=== PATIENT | female | born 1950 | race Caucasian/White ===

== ENCOUNTER 2017-02-20 19:43 | Emergency (ER) | payer MEDICARE, OTHER ==
[2017-02-20] MEDS ORDERED: ONDANSETRON HCL 4 MG/2 ML VIAL ONE (20:16)
[2017-02-20] MEDS ORDERED: KETOROLAC TROMETHAMINE 30 MG/ML VIAL ONE (20:16)
[2017-02-20] MEDS ORDERED: NORMAL SALINE 1,000 ML IV ONE (20:16)
[2017-02-20 20:28] LABS: BASOPHIL# 0.1 X 10^3uL (0.0-0.1); BASOPHILS 0.8 % (0.0-2.0); EOSINOPHILS 7.4 % (0.0-6.0); EOSINOPHILS# 0.6 X 10^3uL (0.0-0.4); HEMATOCRIT 39.9 % (36.0-48.0); HEMOGLOBIN 13.2 g/dL (12.0-16.0); LYMPHOCYTES 42.6 % (20.0-40.0); LYMPHOCYTES# 3.1 X 10^3uL (0.8-3.8); MEAN CELL VOLUME 88.5 fL (80.0-100.0); MEAN CORPUS. HGB CONCENTRATION 33.1 g/dL (32.0-36.0); MEAN CORPUSCULAR HEMOGLOBIN 29.3 pg (29.0-35.0); MEAN PLATELET VOLUME 10.1 fL (7.4-10.4); MONOCYTES 10.5 % (2.0-10.0); MONOCYTES# 0.8 X 10^3uL (0.2-1.0); NEUTROPHILS 38.7 % (54.0-75.0); NEUTROPHILS# 2.9 X 10^3uL (2.6-6.7); RED BLOOD COUNT 4.51 X 10^6uL (4.20-6.10); RED CELL DISTRIBUTION WIDTH 13.1 % (11.5-14.5); WHITE BLOOD COUNT 7.5 X 10^3uL (3.9-10.7)
[2017-02-20 20:30] LABS: A/G RATIO 1.4; ALBUMIN 4.4 g/dL (3.5-5.0); BILIRUBIN, TOTAL 0.5 mg/dL (0.2-1.3); CALCIUM 9.9 mg/dL (8.4-10.2); TOTAL PROTEIN 7.6 g/dL (6.3-8.2)
--- NOTE | 2017-02-20 21:13 | CT REPORT ---
HISTORY: Fall with loss of consciousness COMPARISON: None. TECHNIQUE: This examination was performed using automated exposure control, adjustment of mA or kV according to patient size, and/or use of iterative reconstruction technique. Axial thin section images obtained f rom skull base through head of the clavicles. Sagittal and coronal reformat images obtained. FINDINGS: There is no fracture. There is no prevertebral soft tissue swelling. Alignment is normal. There is no lytic or sclerotic lesion. Mineralization is normal. There is no gross soft tissue abnormality. Facet arthropathy greatest at C4-5 and C5-6 without significant bony foraminal narrowing or bony ce ntral stenosis. IMPRESSION: No evidence of acute bony injury, cervical spine. Final Electronic Signature: This report was electronically signed by Gen Ted MD on 02/20/2017 9: 11 PM. laurel /
--- NOTE | 2017-02-20 21:15 | CT REPORT ---
HISTORY: COMPARISON: None. TECHNIQUE: Axial imaging was obtained through the brain. This examination was performed using automated exposure control, adjustment of mA or kV according to patient size, and/or use of iterative reconstruction technique. FINDINGS: The ventricles and sulci are normal in size and configuration for the patient's age. No evidence of abnormal intra- or extraaxial fluid collection/bleed or mass lesion identified. No evidence of acute stroke. The paranasal sinuses and orbits appear within normal limits. Bilateral mandibular ORIF hardware. IMPRESSION: No evidence of acute intracranial injury. Final Electronic Signature: This report was electronically signed by Gen Ted MD on 02/20/2017 9: 12 PM. laurel /
[2017-02-20] MEDS ORDERED: NYSTATIN POWDER 1 APPLIC BTL TOPICAL ONE (21:17)
--- NOTE | 2017-02-20 21:40 | ER NURSING DOCUMENTATION ---
Nurse's Notes Name:Elaine Craft Age:66 yrs Sex:Female :1950 Arrival Date:02/20/2017 Time:19:43 Bed1 Private MD:Physician, No Diagnosis:Headache, Tension Presentation: 02/20 19:47 Presenting complaint: Patient states: Ground level fall. Transition of care: Home. lp 19:47 Method Of Arrival: EMS: 400 lp 19:47 Acuity: ALMA 3 lp Triage Assessment: 19:57 General: Appears in no apparent distress. lp 19:57 General: Behavior is appropriate for age. Pain: Complains of pain in anterior aspect of lp right shoulder and posterior aspect of right shoulder Pain currently is 5 out of 10 on a pain scale. EENT: No deficits noted. 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 Moves all extremities. Gait is steady, Speech is normal, Facial symmetry appears normal. Cardiovascular: No deficits noted. Respiratory: No deficits noted. GI: No deficits noted. : No deficits noted. Derm: No deficits noted. Musculoskeletal: No deficits noted. Historical: - Allergies: SULFA (SULFONAMIDES); Imitrex; Latex; - Home Meds: 1. Rytary 1 tab 10x daily for Parkinsons 2. Metanx (algal oil) 3 mg-35 mg-2 mg -90.314 mg oral cap 2 caps daily 3. Cymbalta 30 mg oral cpDR 1 cap 2 times per day 4. Lasix 20 mg oral tab 1 tab once daily 5. cevimeline 30 mg oral cap 1 cap 3 times per day 6. Protonix 40 mg oral TbEC 1 tab once daily 7. trazodone 100 mg oral tab 1 tab 3 times per day after meals 8. Seroquel 100 mg oral tab 1 tab 9. Sharon 10-325 mg oral tab 1 tab every 6 hours as needed for pain 10. Hysingla 1 tab as needed twice a day 11. pregabalin 150 mg oral cap 1 cap 3 x daily 12. Topamax 50 mg oral tab 1 tab 2 times per day 13. clotrimazole 1 % topical crea Unknown 3 x daily - PMHx: Migraines; PARKINSONS; DEPRESSION; Hypertension; CHRONIC PAIN; Chronic Yeast Infection; - PSHx: Appendectomy; HERNIA REPAIR; [place] teeth; TMJ Surgery; D & C; ECTOPIC ; - Tetanus: < 10 years. - Ebola Screening: : Patient negative for fever greater than or equal to 101.5 degrees Fahrenheit, and additional compatible Ebola Virus Disease symptoms. Patient denies exposure to infectious person. Patient denies travel to an Ebola-affected area in the 21 days before illness onset. . - Immunization history: Pneumococcal vaccine is up to date, Flu Vaccine < 1 year. - Social history: Smoking status: Patient states was never smoker of tobacco. Screenin:59 Infectious Disease Risk None. Nutritional screening: No deficits noted. lp 19:59 Abuse screen: Denies threats or abuse. Denies injuries from another. lp Assessment: 19:59 See Triage Assessment done by same RN. lp Vital Signs: 19:41 BP 101 / 51 (auto/); lp 19:42 Pulse Ox 90% ; lp 19:47 BP 101 / 51; Pulse 77; Resp 14; Temp 97.5(TE); Pulse Ox 83% on R/A; Weight 83.91 kg; lp Height 5 ft. 10 in. (177.80 cm); Pain 5/10; 20:00 BP 103 / 57 (auto/); lp 20:02 Pulse Ox 94% ; lp 21:00 BP 124 / 63 (auto/); lp 21:11 BP 115 / 58 (auto/); lp 21:27 Pulse Ox 98% ; lp 21:31 BP 126 / 68 (auto/); lp 19:47 Body Mass Index 26.54 (83.91 kg, 177.80 cm) lp ED Course: 19:44 Patient arrived in ED. em2 19:44 Physician, No is Private Physician. em2 19:46 Maria Fernanda Rodrigues, RN is Primary Nurse. lp 19:47 Triage completed. lp 19:51 EKG done. (by ED staff). em1 19:55 Macario Burger MD is Attending Physician. be 19:[address] Burger. lp 19:59 Valuables Remains with patient Patient has correct armband on for positive lp identification. Placed in gown. Bed in low position. Call light in reach. 20:[address] mr 20:[address]. mr Administered Medications: 20:07 Drug: NS 0.9% 1000 ml; Route: IV; Rate: bolus; Site: left antecubital; lp 21:38 Follow up: Response: No adverse reaction; No change in condition; IV Status: Completed lp infusion; IV Intake: 1000ml 20:07 Drug: Zofran 8 mg; Route: IVP; Infused Over: 2 mins; Site: left antecubital; lp 21:05 Follow up: Response: No adverse reaction; Nausea is decreased lp 20:08 Drug: Toradol 30 mg; Route: IVP; Site: left antecubital; lp 21:05 Follow up: Response: No adverse reaction; Pain is decreased lp 20:45 Drug: nystatin 202848 units; {Note: No feeding tube on skin under breasts and in lp groin.} Route: Feeding Tube; Intake: 21:38 IV: 1000ml; Total: 1000ml. lp Outcome: 21:02 Discharge ordered by . be 21:37 Discharged to home ambulatory. lp 21:37 Condition: stable 21:37 Instructed on discharge instructions, follow up and referral plans. medication usage. 21:39 Patient left the ED. lp 02/21 11:44 Discharge F/U Call: Unable to reach: no answer Signatures: Maria Fernanda Rodrigues RN RN Macario Burger MD MD be JerichoKnomo-tech, Elsa-tech em1 [place]-reg, Elsa-reg em2 Batool Sommers Perez, Godwin mr
--- NOTE | 2017-02-20 21:40 | ER PHYSICIAN DOCUMENTATION ---
Physician Documentation [facility] Name:Elaine Craft Age:66 yrs Sex:Female :1950 Arrival Date:02/20/2017 Time:19:43 Bed1 Private MD:Physician, No ED Macario Ann Disposition: 02/20/17 21:02 Discharged to Home/Self Care. Impression: Headache, Tension. - Condition is Good. - Discharge Instructions: HEADACHE, Tension, Altitude - ALTITUDE SICKNESS. - Prescriptions for nystatin (bulk) - Apply to affected area 1 packet by TOPICAL route 2 times per day; 60 packet. - Medical Reconciliation form form. - Follow up: Private Physician; When: As needed; Reason: Recheck today's complaints, Continuance of care. - Problem is new. - Symptoms have improved. HPI: 02/20 20:06 This 66 yrs old Female presents to ER via EMS with complaints of Fall Injury. be 20:06 Details of fall: The patient fell from an upright position, while walking. Onset: The be symptom(s)/episode began/occurred just prior to arrival, just arrived in [facility] and checked in to [place], with no airconditioning in room. Associated injuries: The patient sustained injury to the head, contusion. Associated signs and symptoms: Pertinent positives: headache, nausea, tingling, weakness. Severity of symptoms: At their worst the symptoms were moderate, just prior to arrival. Historical: - Allergies: SULFA (SULFONAMIDES); Imitrex; Latex; - Home Meds: 1. Rytary 1 tab 10x daily for Parkinsons 2. Metanx (algal oil) 3 mg-35 mg-2 mg -90.314 mg oral cap 2 caps daily 3. Cymbalta 30 mg oral cpDR 1 cap 2 times per day 4. Lasix 20 mg oral tab 1 tab once daily 5. cevimeline 30 mg oral cap 1 cap 3 times per day 6. Protonix 40 mg oral TbEC 1 tab once daily 7. trazodone 100 mg oral tab 1 tab 3 times per day after meals 8. Seroquel 100 mg oral tab 1 tab 9. [place] 10-325 mg oral tab 1 tab every 6 hours as needed for pain 10. Hysingla 1 tab as needed twice a day 11. pregabalin 150 mg oral cap 1 cap 3 x daily 12. Topamax 50 mg oral tab 1 tab 2 times per day 13. clotrimazole 1 % topical crea Unknown 3 x daily - PMHx: Migraines; PARKINSONS; DEPRESSION; Hypertension; CHRONIC PAIN; Chronic Yeast Infection; - PSHx: Appendectomy; HERNIA REPAIR; [place] teeth; TMJ Surgery; D & C; ECTOPIC ; - Tetanus: < 10 years. - Ebola Screening: : Patient negative for fever greater than or equal to 101.5 degrees Fahrenheit, and additional compatible Ebola Virus Disease symptoms. Patient denies exposure to infectious person. Patient denies travel to an Ebola-affected area in the 21 days before illness onset. . - Immunization history: Pneumococcal vaccine is up to date, Flu Vaccine < 1 year. - Social history: Smoking status: Patient states was never smoker of tobacco. ROS: 20:08 MS/extremity: Positive for tenderness, right shoulder, head/neck and bilateral knees. be Exam: 20:10 Constitutional: This is a well developed, well nourished patient who is awake, alert, be and in no acute distress. Head/Face: Normocephalic, atraumatic. Eyes: Pupils equal round and reactive to light, extra-ocular motions intact. Lids and lashes normal. Conjunctiva and sclera are non-icteric and not injected. Cornea within normal limits. Periorbital areas with no swelling, redness, or edema. ENT: Nares patent. No nasal discharge, no septal abnormalities noted. Tympanic membranes are normal and external auditory canals are clear. Oropharynx with no redness, swelling, or masses, exudates, or evidence of obstruction, uvula midline. Mucous membranes moist. Neck: Trachea midline, no thyromegaly or masses palpated, and no cervical lymphadenopathy. Supple, full range of motion without nuchal rigidity, or vertebral point tenderness. No Meningismus. Chest/axilla: Normal chest wall appearance and motion. Nontender with no deformity. No lesions are appreciated. 20:10 Cardiovascular: Regular rate and rhythm with a normal S1 and S2. No gallops, murmurs, be or rubs. Normal PMI, no JVD. No pulse deficits. 20:10 Musculoskeletal/extremity: Extremities: all normal ROM, but c/o pain. 20:10 Neuro: Orientation: is normal, Mentation: is normal. Vital Signs: 19:41 BP 101 / 51 (auto/); lp 19:42 Pulse Ox 90% ; lp 19:47 BP 101 / 51; Pulse 77; Resp 14; Temp 97.5(TE); Pulse Ox 83% on R/A; Weight 83.91 kg; lp Height 5 ft. 10 in. (177.80 cm); Pain 5/10; 20:00 BP 103 / 57 (auto/); lp 20:02 Pulse Ox 94% ; lp 21:00 BP 124 / 63 (auto/); lp 21:11 BP 115 / 58 (auto/); lp 21:27 Pulse Ox 98% ; lp 21:31 BP 126 / 68 (auto/); lp 19:47 Body Mass Index 26.54 (83.91 kg, 177.80 cm) lp MDM: 20:00 Patient medically screened. be 20:05 ECG:. be 20:11 Differential diagnosis: closed head injury, contusion, altitude sickness. be 21:11 Data reviewed: and as a result, I will discharge patient, administer IV fluids, NS be bolus, prescribe pain medication, Toradol. 22:55 ECG:. be 02/20 20:34 Order name: COMPREHENSIVE METABOLIC PANEL; Complete Time: 21:08 EDMS 02/20 21:08 Interpretation: Normal Except: mild renal insufficiency. be 02/20 20:46 Order name: CBC AUTO DIF, MDIF/RMOR IF IND; Complete Time: 21:08 EDMS 02/20 21:08 Interpretation: Normal. be 02/20 21:14 Order name: CAT SCAN; CERVICAL W/[id number]; Complete Time: 22:56 EDMS 02/20 22:56 Interpretation: Normal. be 02/20 21:15 Order name: CAT SCAN; HEAD W/O CON [id number]; Complete Time: 22:56 EDMS 02/22 17:21 Order name: SHOULDER; 2V+ [place] [id number] EDMS 02/22 17:21 Order name: KNEE; [address] [place] [id number] EDMS 02/20 19:59 Order name: EKG - 12 Lead; Complete Time: 20:10 be EC:05 Rate is 74 beats/min. Rhythm is regular, Normal Sinus Rhythm with No ectopy. QRS [place] be is Normal. [place] interval is normal. QRS interval is normal. QT interval is normal. No Q waves. T waves are Normal. No ST changes noted. Clinical impression: Normal ECG. Interpreted by me. 22:55 Rate is 74 beats/min. Rhythm is regular, Normal Sinus Rhythm with No ectopy. QRS [place] be is Normal. [place] interval is normal. QRS interval is normal. QT interval is normal. No Q waves. T waves are Normal. No ST changes noted. Clinical impression: Normal ECG. Interpreted by me. Dispensed Medications: 20:07 Drug: NS 0.9% 1000 ml; Route: IV; Rate: bolus; Site: left antecubital; lp 21:38 Follow up: Response: No adverse reaction; No change in condition; IV Status: Completed lp infusion; IV Intake: 1000ml 20:07 Drug: Zofran 8 mg; Route: IVP; Infused Over: 2 mins; Site: left antecubital; lp 21:05 Follow up: Response: No adverse reaction; Nausea is decreased lp 20:08 Drug: Toradol 30 mg; Route: IVP; Site: left antecubital; lp 21:05 Follow up: Response: No adverse reaction; Pain is decreased lp 20:45 Drug: nystatin 404987 units; {Note: No feeding tube on skin under breasts and in lp groin.} Route: Feeding Tube; Signatures: Maria Fernanda Rodrigues RN RN Macario Burger MD MD be
--- NOTE | 2017-02-22 11:13 | RADIOLOGY REPORT ---
Two views of the right shoulder demonstrates a nondisplaced oblique fracture of the lateral aspect of the clavicle. No other bony abnormality is identified. Joints appear unremarkable. IMPRESSION: Nondisplaced fracture of the lateral aspect of the right clavicle. MTDD
--- NOTE | 2017-02-22 11:14 | RADIOLOGY REPORT ---
Three views of each knee demonstrate no displaced fracture or dislocation. Joints appear unremarkable. IMPRESSION: No displaced injury. If clinically indicated, further evaluation and/or follow-up may be of benefit. [facility]
== END 2017-02-20 21:40 | disposition home or self-care (01) ==
LOC: ER 19:43
DX: S42.034A Nondisplaced fracture of lateral end of right clavicle, initial encounter for closed fracture (principal); S00.03XA Contusion of scalp, initial encounter; M25.561 Pain in right knee; M25.562 Pain in left knee; W19.XXXA Unspecified fall, initial encounter; Y93.01 Activity, walking, marching and hiking; G44.201 Tension-type headache, unspecified, intractable; G20 Parkinson's disease; Z79.899 Other long term (current) drug therapy; Z74.3 Need for continuous supervision
CPT/HCPCS: 70450; 72125; 73030; 73562; 80053; 85025; 93005; 96361; 96374; 96375; 99284; A0425; A0426; J1885; J2405; J7030

== ENCOUNTER 2017-02-22 10:00 | Observation (INO) | payer MEDICARE, OTHER ==
[2017-02-22 10:33] LABS: BASOPHILS 0.5 % (0.0-2.0); EOSINOPHILS 6.6 % (0.0-6.0); EOSINOPHILS# 0.4 X 10^3uL (0.0-0.4); HEMATOCRIT 36.8 % (36.0-48.0); LYMPHOCYTES# 2.3 X 10^3uL (0.8-3.8); MEAN CORPUS. HGB CONCENTRATION 32.6 g/dL (32.0-36.0); MEAN CORPUSCULAR HEMOGLOBIN 29.4 pg (29.0-35.0); MEAN PLATELET VOLUME 8.5 fL (7.4-10.4); MONOCYTES 11.9 % (2.0-10.0); MONOCYTES# 0.7 X 10^3uL (0.2-1.0); NEUTROPHILS# 2.7 X 10^3uL (2.6-6.7); RED BLOOD COUNT 4.09 X 10^6uL (4.20-6.10); RED CELL DISTRIBUTION WIDTH 13.4 % (11.5-14.5); WHITE BLOOD COUNT 6.1 X 10^3uL (3.9-10.7)
[2017-02-22 10:48] LABS: CALCIUM 9.1 mg/dL (8.4-10.2); POTASSIUM 3.9 mmol/L (3.5-5.1)
[2017-02-22 11:02] LABS: TROPONIN I 0.037 ng/mL (0.00-0.034)
[2017-02-22] MEDS ORDERED: HOME MEDICATION LIST NEEDED 1 EA EACH MC ONE (11:49)
[2017-02-22] MEDS ORDERED: NYSTATIN SUSP 500,000 UNITS/5 ML SUSP ONE (11:53)
[2017-02-22] MEDS ORDERED: FUROSEMIDE 20 MG/2 ML VIAL ONE (11:56)
--- NOTE | 2017-02-22 12:52 | ER PHYSICIAN DOCUMENTATION ---
Physician Documentation [facility] Name:Elaine Craft Age:66 yrs Sex:Female :1950 Arrival Date:02/22/2017 Time:10:00 BedTrauma-C Private MD: Aquiles Vail Disposition: 02/22 11:46 Critical Care: not applicable. sc Disposition: 02/22/17 11:48 Admit ordered for Orquidea Calderon. Preliminary diagnosis are CHF (Congestive Heart Failure), Hypoxia, Clavicle Fracture. - Bed requested for Medical/Surgical. - Condition is Fair. - Problem is new. - Symptoms are unchanged. 23 HR OBS Yes HPI: 11:43 This 66 yrs old Female presents to ER via Private Vehicle with complaints of sc Breathing Difficulty. 11:43 The patient has shortness of breath at rest. Onset: The symptom(s)/episode sc began/occurred 2 day(s) ago. Duration: The symptoms are continuous. The patient's shortness of breath is aggravated by altitude. Associated signs and symptoms: Pertinent negatives: chest pain, non-productive cough, fever. Severity of symptoms: At their worst the symptoms were mild. fall two days ago, increased hand and ankle swelling. Historical: - Allergies: SULFA (SULFONAMIDES); Imitrex; Latex; - Home Meds: 1. Rytary 1 tab 10x daily for Parkinsons 2. Metanx (algal oil) 3 mg-35 mg-2 mg -90.314 mg oral cap 2 caps daily 3. Cymbalta 30 mg oral cpDR 1 cap 2 times per day 4. Lasix 20 mg oral tab 1 tab once daily 5. cevimeline 30 mg oral cap 1 cap 3 times per day 6. Protonix 40 mg oral TbEC 1 tab once daily 7. trazodone 100 mg oral tab 1 tab 3 times per day after meals 8. Seroquel 100 mg oral tab 1 tab 9. [place] 10-325 mg oral tab 1 tab every 6 hours as needed for pain 10. pregabalin 150 mg oral cap 1 cap 3 x daily 11. Topamax 50 mg oral tab 1 tab 2 times per day 12. clotrimazole 1 % topical crea Unknown 3 x daily - PMHx: MIGRAINES; PARKINSONS; DEPRESSION; HYPERTENSION; CHRONIC PAIN; Chronic Yeast Infection; Headache, Tension (February 20, 2017); - PSHx: APPENDECTOMY; HERNIA REPAIR; [place] teeth; TMJ Surgery; D & C; ECTOPIC ; - Tetanus: < 10 years. - Ebola Screening: : Patient negative for fever greater than or equal to 101.5 degrees Fahrenheit, and additional compatible Ebola Virus Disease symptoms. Patient denies exposure to infectious person. Patient denies travel to an Ebola-affected area in the 21 days before illness onset. . - Immunization history: Pneumococcal vaccine is up to date, Flu Vaccine < 1 year. - Social history: Smoking status: Patient states was never smoker of tobacco. ROS: 11:44 Constitutional: Negative for fever, chills, and weight loss. sc Eyes: Negative for injury, pain, redness, and discharge. ENT: Negative for injury, pain, and discharge. Neck: Negative for injury, pain, and swelling. Abdomen/GI: Negative for abdominal pain, nausea, vomiting, diarrhea, and constipation. Back: Negative for injury and pain. MS/Extremity: Negative for injury and deformity. Skin: Negative for injury, rash, and discoloration. 11:44 Neuro: Negative for headache, weakness, numbness, tingling, and seizure. sc 11:44 Cardiovascular: Positive for edema. 11:44 Respiratory: Positive for shortness of breath, Negative for cough, hemoptysis, wheezing. Exam: Head/Face: Normocephalic, atraumatic. Eyes: Pupils equal round and reactive to light, extra-ocular motions intact. Lids and lashes normal. Conjunctiva and sclera are non-icteric and not injected. Cornea within normal limits. Periorbital areas with no swelling, redness, or edema. ENT: Nares patent. No nasal discharge, no septal abnormalities noted. Tympanic membranes are normal and external auditory canals are clear. Oropharynx with no redness, swelling, or masses, exudates, or evidence of obstruction, uvula midline. Mucous membranes moist. Neck: Trachea midline, no thyromegaly or masses palpated, and no cervical lymphadenopathy. Supple, full range of motion without nuchal rigidity, or vertebral point tenderness. No meningismus. Chest/axilla: Normal chest wall appearance and motion. Nontender with no deformity. No lesions are appreciated. Cardiovascular: Regular rate and rhythm with a normal S1 and S2. No gallops, murmurs, or rubs. Normal PMI, no JVD. No pulse deficits. Back: No spinal tenderness. No costovertebral tenderness. Full range of motion. 11:45 Neuro: Awake and alert, GCS 15, oriented to person, place, time, and situation. sc Cranial nerves II-XII grossly intact. Motor strength 5/5 in all extremities. Sensory grossly intact. Cerebellar exam normal. Normal gait. 11:45 Constitutional: The patient appears frail. 11:45 Respiratory: mild respiratory distress is noted, Respirations: shallow respirations, Breath sounds: are normal, clear throughout. Vital Signs: 10:17 BP 99 / 55; Pulse 71; Resp 20; Temp 98.4(TE); Pulse Ox 85% on R/A; Weight 81.65 kg; lp Height 5 ft. 2 in. (157.48 cm); Pain 5/10; 11:00 BP 102 / 63 (auto/); lp 11:01 Pulse 66 MON; Resp 16; Pulse Ox 95% ; lp 11:30 BP 101 / 51 (auto/); lp 11:31 Pulse 64 MON; Resp 20; Pulse Ox 95% ; lp 12:00 BP 103 / 58; Pulse 64; Resp 18; lp 12:42 BP 106 / 52; Pulse 73; Resp 16; Pulse Ox 95% on 2 lpm NC; lp 10:17 Body Mass Index 32.92 (81.65 kg, 157.48 cm) lp MDM: 10:12 Patient medically screened. sc 10:32 ECG:. sc 11:08 EKG attached lp 11:45 Differential diagnosis: Anemia CHF exacerbation, Myocardial Infarction pulmonary edema, sc Pulmonary Embolism. Antibiotic administration: Not indicated. Data reviewed: vital signs, nurses notes, old medical records, lab test result(s), EKG, radiologic studies, discussed CT for PE with pt and Dr. Calderon. Data reviewed: and as a result, I will admit patient. Data interpreted: Pulse oximetry: on room air is 84 %. 02/22 11:03 Order name: BASIC METABOLIC PANEL; Complete Time: : EDMS 02/22 11:03 Order name: BNP,NT-PRO; Complete Time: : EDMS 02/22 11:03 Order name: TROPONIN I; Complete Time: : EDMS 02/22 11:04 Order name: DDIMER; Complete Time: : [facility] 02/22 11:16 Order name: CBC AUTO DIF, MDIF/RMOR IF IND; Complete Time: 11:29 [facility] 02/23 07:13 Order name: BASIC METABOLIC PANEL [facility] 02/23 07:13 Order name: BNP,NT-PRO EDMO 02/23 07:16 Order name: CHEST; SINGLE [place]IEW [id number] [facility] 02/22 10:24 Order name: 12-lead EKG; Complete Time: 10:49 md 02/22 10:24 Order name: Continuous Cardiac Monitoring; Complete Time: 10:49 md 02/22 10:24 Order name: I & O; Complete Time: 10:49 md 02/22 10:24 Order name: Iv Saline Lock; Complete Time: :49 md 02/22 10:24 Order name: Oxygen; Complete Time: : md 02/22 10:24 Order name: Pulse Ox Continuous; Complete Time: 10:49 md EC:32 Rate is 67 beats/min. Rhythm is regular. QRS [place] is Normal. [place] interval is normal. QRS sc interval is normal. QT interval is normal. No Q waves. T waves are Normal. No ST changes noted. Clinical impression: Normal ECG. Interpreted by me. Reviewed by me. Dispensed Medications: 11:47 Drug: Lasix 20 mg; Route: IVP; Site: right antecubital; lp 12:17 Follow up: Response: No adverse reaction lp 11:47 Drug: nystatin [id number] units; Route: PO; lp 12:17 Follow up: Response: No adverse reaction lp Signatures: Maria Fernanda Rodrigues RN RN Aquiles Ferguson MD MD md
--- NOTE | 2017-02-22 12:52 | ER NURSING DOCUMENTATION ---
Nurse's Notes [facility] Name:Elaine Craft Age:66 yrs Sex:Female :1950 Arrival Date:02/22/2017 Time:10:00 BedTrauma-C Private MD: Diagnosis:CHF (Congestive Heart Failure);Hypoxia;Clavicle Fracture Presentation: 02/22 10:02 Acuity: ALMA 2 rh 10:15 Presenting complaint: Patient states: SOB. Transition of care: Home. Notified ED lp Physician of Dr. Bob notified. 10:15 Method Of Arrival: Private Vehicle lp Triage Assessment: 10:23 General: Appears in no apparent distress, Behavior is anxious. Respiratory: Reports lp shortness of breath at rest on exertion Onset: The symptoms/episode began/occurred yesterday, the patient has mild shortness of breath. Historical: - Allergies: SULFA (SULFONAMIDES); Imitrex; Latex; - Home Meds: 1. Rytary 1 tab 10x daily for Parkinsons 2. Metanx (algal oil) 3 mg-35 mg-2 mg -90.314 mg oral cap 2 caps daily 3. Cymbalta 30 mg oral cpDR 1 cap 2 times per day 4. Lasix 20 mg oral tab 1 tab once daily 5. cevimeline 30 mg oral cap 1 cap 3 times per day 6. Protonix 40 mg oral TbEC 1 tab once daily 7. trazodone 100 mg oral tab 1 tab 3 times per day after meals 8. Seroquel 100 mg oral tab 1 tab 9. [place] 10-325 mg oral tab 1 tab every 6 hours as needed for pain 10. pregabalin 150 mg oral cap 1 cap 3 x daily 11. Topamax 50 mg oral tab 1 tab 2 times per day 12. clotrimazole 1 % topical crea Unknown 3 x daily - PMHx: MIGRAINES; PARKINSONS; DEPRESSION; HYPERTENSION; CHRONIC PAIN; Chronic Yeast Infection; Headache, Tension (February 20, 2017); - PSHx: APPENDECTOMY; HERNIA REPAIR; [place] teeth; TMJ Surgery; D & C; ECTOPIC ; - Tetanus: < 10 years. - Ebola Screening: : Patient negative for fever greater than or equal to 101.5 degrees Fahrenheit, and additional compatible Ebola Virus Disease symptoms. Patient denies exposure to infectious person. Patient denies travel to an Ebola-affected area in the 21 days before illness onset. . - Immunization history: Pneumococcal vaccine is up to date, Flu Vaccine < 1 year. - Social history: Smoking status: Patient states was never smoker of tobacco. Screenin:18 Infectious Disease Risk None. Abuse screen: Denies threats or abuse. Denies injuries lp from another. Nutritional screening: No deficits noted. Assessment: 10:21 General: Appears in no apparent distress, Behavior is anxious. Pain: Complains of pain lp in top of head, forehead, right zoroastrian and left zoroastrian Pain currently is 5 out of 10 on a pain scale. Neuro: Level of Consciousness is awake, alert, Oriented to person, place, time, event, Buttonhole Marker are equal bilaterally Moves all extremities. EENT: No deficits noted. Cardiovascular: Heart tones S1 S2 Murmur present Rhythm is sinus rhythm. Respiratory: Airway is patent Trachea midline Respiratory effort is even, unlabored, Breath sounds with wheezes bilaterally. GI: No deficits noted. Bowel sounds present X 4 quads. : No deficits noted. Vital Signs: 10:17 BP 99 / 55; Pulse 71; Resp 20; Temp 98.4(TE); Pulse Ox 85% on R/A; Weight 81.65 kg; lp Height 5 ft. 2 in. (157.48 cm); Pain 5/10; 11:00 BP 102 / 63 (auto/); lp 11:01 Pulse 66 MON; Resp 16; Pulse Ox 95% ; lp 11:30 BP 101 / 51 (auto/); lp 11:31 Pulse 64 MON; Resp 20; Pulse Ox 95% ; lp 12:00 BP 103 / 58; Pulse 64; Resp 18; lp 12:42 BP 106 / 52; Pulse 73; Resp 16; Pulse Ox 95% on 2 lpm NC; lp 10:17 Body Mass Index 32.92 (81.65 kg, 157.48 cm) lp ED Course: 10:01 Patient arrived in ED. ama 10:02 Triage completed. rh 10:12 Aquiles Bob MD is Attending Physician. sc 10:15 Maria Fernanda Rodrigues, CARLOS is Primary Nurse. lp 10:18 Valuables Patient has correct armband on for positive identification. Placed in gown. lp Bed in low position. Call light in reach. Side rails up X 1. 10:45 Port Xray Completed. hz 10:49 Cardiac Monitoring On for Nurse Monitoring only. Pulse Ox - RN Monitoring Only NIBP On lp - RN Monitoring Only. 11:08 EKG attached lp 11:47 Orquidea Calderon MD is Admitting Physician. sc Administered Medications: 11:47 Drug: Lasix 20 mg; Route: IVP; Site: right antecubital; lp 12:17 Follow up: Response: No adverse reaction lp 11:47 Drug: nystatin [id number] units; Route: PO; lp 12:17 Follow up: Response: No adverse reaction lp Outcome: 11:48 Decision to Admit by Provider. sc 12:40 Admitted to Med/surg accompanied by nurse. lp 12:40 Condition: good 12:40 Report given to Bebeto GONZALEZ 12:40 Instructed on need to admit 12:51 Patient left the ED. lp Signatures: Maria Fernanda Rodrigues, RN RN lp Aquiles Bob MD MD sc Averdick, Andrew, Reg Reg Batool Galindo Donna Tyson
[2017-02-22] MEDS ORDERED: TURMERIC 1 GM PO PRN ×2 (14:55→15:14)
[2017-02-22] MEDS ORDERED: QUETIAPINE FUMARATE 25 MG TABLET PO PRN ×2 (14:55→15:16)
[2017-02-22] MEDS ORDERED: PREGABALIN 75 MG CAPSULE PO PRN (14:55)
[2017-02-22] MEDS ORDERED: CALCIUM CARBONATE 300 MG TAB.CHEW PO PRN (14:55)
[2017-02-22] MEDS ORDERED: NON-FORMULARY MEDICATION (Naloxegol Oxalate [Movantik] 25 MG) PO SCH (15:00)
[2017-02-22] MEDS ORDERED: CEVIMELINE HCL 30 MG PO SCH (15:00)
[2017-02-22] MEDS ORDERED: DULOXETINE 30 MG CAPSULE.DR PO SCH (15:00)
[2017-02-22] MEDS ORDERED: FUROSEMIDE 20 MG TABLET PO SCH (15:00)
[2017-02-22] MEDS ORDERED: LEVODOPA PO SCH ×3 (15:24→17:00)
[2017-02-22] MEDS ORDERED: CARBIDOPA PO SCH ×3 (15:24→17:00)
[2017-02-22] MEDS: NALOXEGOL OXALATE 25 MG PO SCH (15:53)
[2017-02-22] MEDS: FLUCONAZOLE 100 MG CAPSULE PO SCH (15:53)
[2017-02-22] MEDS: PANTOPRAZOLE 40 MG TABLET PO SCH ×2 (15:54→21:18)
[2017-02-22] MEDS: CLOTRIMAZOLE 10 MG TROCHE MUCOUS MEM SCH ×2 (15:54→21:18)
[2017-02-22] MEDS: POLYETHYLENE GLYCOL 3350 17 GM POWD.PACK PO SCH (16:03)
[2017-02-22] MEDS ORDERED: [UNRECOGNIZED DRUG - OTHER] PO SCH (17:00)
[2017-02-22] MEDS: CARBIDOPA PO SCH ×2 (17:20→21:18)
[2017-02-22] MEDS: LEVODOPA PO SCH ×2 (17:20→21:18)
--- NOTE | 2017-02-22 17:52 | RADIOLOGY REPORT ---
A limited single portable view of the chest, without prior films for comparison , demonstrates a limited degree of inspiration. Considering this the heart and vessels are unremarkable. The lung morales are clear. No infiltrate, fluid or pneumothorax is seen. Correlating with the films of 02/20/2017 fracture of the lateral aspect of the right clavicle appears unchanged. IMPRESSION: 1. Right lateral clavicle fracture. 2. No acute cardiopulmonary abnormality is identified. MTDD
[2017-02-22] MEDS ORDERED: B12 PO SCH (21:00)
[2017-02-22] MEDS ORDERED: traZODone HCL 50 MG TABLET PO SCH (21:00)
[2017-02-22] MEDS ORDERED: QUETIAPINE FUMARATE 100 MG TABLET PO SCH (21:00)
[2017-02-22] MEDS ORDERED: B6 PO SCH (21:00)
[2017-02-22] MEDS ORDERED: HYDROCODONE BITARTRATE 60 MG PO SCH (21:00)
[2017-02-22] MEDS ORDERED: LEVOMEFOLATE PO SCH (21:00)
[2017-02-22] MEDS ORDERED: ALGAL OIL PO SCH (21:00)
[2017-02-22] MEDS: [UNRECOGNIZED DRUG - OTHER] PO SCH (21:17)
[2017-02-22] MEDS: CEVIMELINE HCL 30 MG PO SCH (21:17)
[2017-02-22] MEDS: TOPIRAMATE 50 MG TABLET PO SCH (21:18)
[2017-02-22] MEDS: [UNRECOGNIZED DRUG - OTHER] PO SCH (21:18)
[2017-02-22] MEDS: B6 PO SCH (21:18)
[2017-02-22] MEDS: ALGAL OIL PO SCH (21:18)
[2017-02-22] MEDS: LEVOMEFOLATE PO SCH (21:18)
[2017-02-22] MEDS: B12 PO SCH (21:18)
[2017-02-23] MEDS ORDERED: LEVODOPA PO SCH ×3 (06:00→10:00)
[2017-02-23] MEDS ORDERED: CARBIDOPA PO SCH ×3 (06:00→10:00)
[2017-02-23 07:03] LABS: CALCIUM 9.1 mg/dL (8.4-10.2); POTASSIUM 4.1 mmol/L (3.5-5.1)
[2017-02-23] MEDS: PANTOPRAZOLE 40 MG TABLET PO SCH (08:33)
[2017-02-23] MEDS: FLUCONAZOLE 100 MG CAPSULE PO SCH (08:34)
[2017-02-23] MEDS: TOPIRAMATE 50 MG TABLET PO SCH (08:35)
[2017-02-23] MEDS: CLOTRIMAZOLE 10 MG TROCHE MUCOUS MEM SCH ×2 (08:36→14:08)
[2017-02-23] MEDS: POLYETHYLENE GLYCOL 3350 17 GM POWD.PACK PO SCH (08:36)
[2017-02-23] MEDS: [UNRECOGNIZED DRUG - OTHER] PO SCH ×2 (08:37→13:00)
[2017-02-23] MEDS: B12 PO SCH (08:37)
[2017-02-23] MEDS: ALGAL OIL PO SCH (08:37)
[2017-02-23] MEDS: B6 PO SCH (08:37)
[2017-02-23] MEDS: LEVOMEFOLATE PO SCH (08:37)
[2017-02-23] MEDS: CEVIMELINE HCL 30 MG PO SCH ×2 (08:38→14:08)
[2017-02-23] MEDS: NALOXEGOL OXALATE 25 MG PO SCH (08:39)
[2017-02-23] MEDS ORDERED: FUROSEMIDE 20 MG TABLET PO SCH ×2 (09:00)
[2017-02-23] MEDS ORDERED: DULOXETINE 30 MG CAPSULE.DR PO SCH (09:00)
--- NOTE | 2017-02-23 09:03 | PROGRESS NOTE: IM APSO ---
Assessment and Plan - Date of Encounter Date of Encounter: 02/23/17 (1) Hypoxia Status: Acute Assessment and plan: Probably improved this AM after diuresis, will see if has requirement with ambulation. Diagnosis most consistent with CHF altho' we don't have an ECHO and it is not imperative that we have one prior to d/c; she was assessed by cardiology recently back home. Will increase Lasix, consider d/c later today, hopefully off O2, will obtain for travel if needed. Current Visit: Yes (2) Fluid overload Status: Acute Assessment and plan: Probably related to travel, incr salt intake, possible dx CHF. Current Visit: Yes (3) Chronic pain Status: Chronic Current Visit: Yes (4) Clavicle fracture Status: Acute Assessment and plan: Has not required sling, will be cautious. Current Visit: Yes - Time Spent With Patient Total time spent with greater than 50% in coordination of care (as documented) at patient's floor/unit and/or counseling patient: 16-24 minutes IM: PN Subjective General: fatigue Cardiovascular: no chest pain Respiratory: no wheeze, no SOB Musculoskeletal: no swelling IM: PN Objective Exam - I&O/Vital Signs I&O: Intake & Output 02/22/17 02/23/17 02/23/17 21:59 05:59 13:59 Intake Total 560 400 Output Total 1600 1000 Balance -1040 -600 Intake: IV 0 Right Antecubital 0 Oral 560 400 Output: Urine 1600 1000 Other: Urine Appearance Clear Clear Urine Color Yellow Yellow Voiding Method Toilet Toilet # Voids 2 Vital Signs: Last Vital Signs Temp 36.4 C 02/23/17 06:08 Pulse 55 L 02/23/17 06:08 Resp 12 02/23/17 06:08 BP 110/62 02/23/17 06:08 Pulse Ox 93 02/23/17 06:08 Oxygen Flow Rate 2 Oxygen Delivery Method Nasal Cannula - Constitutional General appearance: Present: cooperative - Eye Eye exam: Present: EOMI - ENT ENT exam: Present: mucous membranes moist - Respiratory Respiratory exam: Present: rales. Absent: respiratory distress, wheezes - Cardiovascular Cardiovascular exam: Present: RRR, systolic murmur - GI/Abdominal GI/Abdominal exam: Present: soft. Absent: tenderness - Extremities Exam Extremities exam: Absent: edema - Neurological Exam Neurological exam: Present: oriented X3 - Psychiatric Psychiatric exam: Present: normal affect - Lab Labs: Laboratory Last Values WBC 6.1 X 10^3uL (3.9-10.7) 02/22/17 10:13 RBC 4.09 X 10^6uL (4.20-6.10) L 02/22/17 10:13 Hgb 12.0 g/dL (12.0-16.0) 02/22/17 10:13 Hct 36.8 % (36.0-48.0) 02/22/17 10:13 MCV 90.0 fL (80.0-100.0) 02/22/17 10:13 MCH 29.4 pg (29.0-35.0) 02/22/17 10:13 MCHC 32.6 g/dL (32.0-36.0) 02/22/17 10:13 RDW 13.4 % (11.5-14.5) 02/22/17 10:13 Plt Count 265 X 10^3uL (130-440) 02/22/17 10:13 MPV 8.5 fL (7.4-10.4) 02/22/17 10:13 Neutrophils % 43.0 % (54.0-75.0) L 02/22/17 10:13 Lymphocytes % 38.0 % (20.0-40.0) 02/22/17 10:13 Eosinophils % 6.6 % (0.0-6.0) H 02/22/17 10:13 Basophils % 0.5 % (0.0-2.0) 02/22/17 10:13 Neutrophils # 2.7 X 10^3uL (2.6-6.7) 02/22/17 10:13 Lymphocytes # 2.3 X 10^3uL (0.8-3.8) 02/22/17 10:13 Monocytes 11.9 % (2.0-10.0) H 02/22/17 10:13 Monocytes # 0.7 X 10^3uL (0.2-1.0) 02/22/17 10:13 Eosinophils # 0.4 X 10^3uL (0.0-0.4) 02/22/17 10:13 Basophils # 0.0 X 10^3uL (0.0-0.1) 02/22/17 10:13 D-Dimer 718 ng/mL H* 02/22/17 10:13 Sodium 144 mmol/L (137-145) 02/23/17 06:40 Potassium 4.1 mmol/L (3.5-5.1) 02/23/17 06:40 Chloride 107 mmol/L (98-107) 02/23/17 06:40 Carbon Dioxide 26 mmol/L (22-30) 02/23/17 06:40 BUN 24 mg/dL (7-17) H 02/23/17 06:40 Creatinine 1.2 mg/dL (0.5-1.0) H 02/23/17 06:40 GFR Calculation 48 mL/min 02/23/17 06:40 Glucose 107 mg/dL (70-100) H 02/23/17 06:40 Calcium 9.1 mg/dL (8.4-10.2) 02/23/17 06:40 Troponin I 0.037 ng/mL (0.00-0.034) H 02/22/17 10:13 NT-Pro-B Natriuret Pep 1100 pg/mL (<125) H 02/23/17 06:40 Quality Questions - VTE Prophylaxis Assessment VTE Present on Admission?: No Patient at risk for venous thromboembolism?: Yes VTE Risk Level: Moderate Risk Pharmaceutical VTE prophylaxis contraindication reason: not indicated Mechanical VTE prophylaxis contraindication reason: N/A- VTE prophylaxsis ordered (3) Chronic pain Qualifiers: Chronic pain type: chronic pain syndrome Qualified Code(s): G89.4 - Chronic pain syndrome (4) Clavicle fracture Qualifiers: Clavicle location: lateral end Fracture type: closed Fracture alignment: nondisplaced Laterality: right Fracture healing: with routine healing
[2017-02-23] MEDS: CARBIDOPA PO SCH ×2 (10:28→13:42)
[2017-02-23] MEDS: LEVODOPA PO SCH ×2 (10:28→13:42)
[2017-02-23 11:36] VITALS: RESP 16
[2017-02-23] MEDS: [UNRECOGNIZED DRUG - OTHER] PO SCH (13:42)
[2017-02-23 15:33] VITALS: BP 108/67; PULSE 68; TEMP 98.5; O2SAT 93
--- NOTE | 2017-03-09 08:39 | HISTORY & PHYSICAL ---
Assessment and Plan: ICD-10-CM 1. Hypoxia R09.02 2. Parkinson's disease (HC code) G20 3. Intractable chronic migraine without aura and with status migrainosus G43.711 4. Dysthymia F34.1 5. Neurogenic orthostatic hypotension (HC code) G90.3 6. Yeast infection B37.9 No medications were added in this encounter. There are no discontinued medications. Patient Instructions None Subjective: Patient ID: Elaine Craft is a 66 y.o. female who presents to [facility] [place] for admission HPI Comments: 66 yo visiting from [place]; first trip in 10 yrs due to multiple medical problems, see Problem List. Has been SOB since arrival, had a fall and seen in ED 02/21 for SOB/fell, no mechanical explanation so it is possible she was hypoxic at that time as well. SOB this AM, unable to ambulate at hotel, so came back to ED for further eval, 85 RA and elevated BNP, so admitted for diuresis. Her cardiologic status is not well understood, as she "was followed by a epic prelude analyst for two months and put on Lasix" but it is unclear why; mere fluid retention or true CHF. She is on chronic Lasix and has been eating more than usual and maybe higher salt foods/fast foods. PSH Appy, umb hernia, [place] teeth, TMJ surgery, ectopic prenancy, R ankle fx, cholecystitis SH lives with in [place], manages own meds generally. Has remote brain injury , no cig or EtOH CURRENT MEDICATIONS: Rytary 3 tabs four times daily, will use pt own meds Cymbalta 30mg DR PO BID Lasix 20mg PO daily Cevimeline 30mg PO TID Protonix 40mg PO daily Trazodone 100mg PO at HS [place] 10/325mg PO q 6 PRN Lyrica 150mg PO TID PRN Topamax 50mg po BID ALLERGIES: Review of patient's allergies indicates not on file. I have reviewed, verified and personally updated the past medical history. Review of Systems Objective: Vital Signs: There were no vitals taken for this visit. Physical Exam Constitutional: She appears well-developed and well-nourished. She appears distressed (appears to feel poorly, lying in bed, eyes closed mostly, but very conversational). Cardiovascular: Normal rate and regular rhythm. Murmur (3/6) heard. Pulmonary/Chest: Effort normal. She has rales (R base more than L). Abdominal: Soft. She exhibits distension. There is no tenderness. Musculoskeletal: She exhibits no edema. Neurological: No cranial nerve deficit. Very minimal cogwheeling upon testing UEs Psychiatric: She has a normal mood and affect. Her behavior is normal. Judgment and thought content normal. DATA: N/A TIME/COMMUNICATION: N/A Spent 15 minutes discussing plan with pt and ; it appears some fluid retention, possibly true CHF (we don't have ECHO yet, may want to get one soon) have caused hypoxia. However, I also voiced that some of this may be altitude related and she may need to be d/cd on O2. They need to think about lower altitude tomorrow. We will continue all usual medications, many of them her own home meds, and diurese gently, hoping to see some diuresis and improvement in oxygenation. Orquidea Calderon MD [facility]
== END 2017-02-23 11:50 | disposition home or self-care (01) ==
LOC: ER 10:00 → IN 12:32
PROVIDERS: ADMIT Family Medicine; ATTEND Family Medicine
DX: R09.02 Hypoxemia (principal); G20 Parkinson's disease; G43.711 Chronic migraine without aura, intractable, with status migrainosus; F34.1 Dysthymic disorder; G90.3 Multi-system degeneration of the autonomic nervous system; Z79.899 Other long term (current) drug therapy
CPT/HCPCS: 36415; 71010; 80048; 83880; 84484; 85025; 85379; 93010; 93041; 96374; 99285; G0378; J1940